=== PATIENT | female | born 1995 | race Caucasian/White ===

== ENCOUNTER 2019-06-03 04:50 | Outpatient (CLI) | payer MEDICAID ==
[2019-06-03] VITALS (7 sets, daily range): BP systolic 100–125; BP diastolic 53–62; PULSE 66–77; TEMP 97.4–98.6
[~2019-06-03] VITALS: Ht 162.6 cm; Wt 110.9 kg
[2019-06-03] MEDS ORDERED: PRENATAL 191 TAB PO (05:19)
[2019-06-03] MEDS ORDERED: NATURAL IRON65 MG (05:19)
--- NOTE | 2019-06-03 06:30 | NUR ---
Assumed care of patient. Rests in bed, alert. 0640 Vag check done, no changed. States still having cramping and contractions. See physicians notes please.
--- NOTE | 2019-06-03 07:00 | NUR ---
States still having contractions. Let her know that she could go home per Dr. Chavez or stay another hour. States wants to wait another hour. 0715 Vistaril 50 mg, tylenol 1000 mg given as ordered by Dr. Cedeno.
--- NOTE | 2019-06-03 07:30 | NUR ---
Rests in bed, alert. Denies any needs at this time.
--- NOTE | 2019-06-03 09:30 | NUR ---
Discharge instructions given, verbalizes with understanding. Dismissed to home with family, ambulatory, stable, alert.
== END 2019-06-03 09:30 | disposition home or self-care (01) ==
LOC: LDRO 04:50
DX: O62.9 Abnormality of forces of labor, unspecified (principal); Z3A.37 37 weeks gestation of pregnancy

== ENCOUNTER 2019-06-05 09:19 | Observation (INO) | payer MEDICAID ==
[~2019-06-05] VITALS: Ht 162.6 cm; Wt 110.5 kg
[~2019-06-05 09:19] MED LIST: NATURAL IRON65 MG; PRENATAL 191 TAB PO
--- NOTE | 2019-06-05 11:40 | NUR ---
Patient to room 213 from ER via cart. Patient fell down the stairs at her home at 0745 this morning. The patient was seen in the ER for a broken shoulder and foot and admitted to our unit for further evaluation from ortho. Patient is alert and oriented and denies pain at this time. INT to left hand. Right arm in a sling. Plan of care reviewed. Patient and spouse oriented to room and call light.
[2019-06-05 11:41] VITALS: BP 128/60; PULSE 76; TEMP 98.3
--- NOTE | 2019-06-05 12:00 | NUR ---
DORIS Avila called in and updated this nurse on new orders for a PT consult and SS consult.
[2019-06-05] MEDS ORDERED: NORCO 325 MG-51 TAB PO (12:18)
--- NOTE | 2019-06-05 12:30 | NUR ---
Attempted to contact physical therapy for consult but they were already gone for the day.
--- NOTE | 2019-06-05 13:30 | NUR ---
er tech to patient room to fit patient for a cam walker. Patient's right foot in cam walker.
--- NOTE | 2019-06-05 13:45 | NUR ---
Patient up to the commode with minimal assistance.
[2019-06-05 16:31] VITALS: BP 113/68; PULSE 92; TEMP 98.3
--- NOTE | 2019-06-05 16:54 | NUR ---
Plan: To return home with Luis [phone] as care support. Patient also wanted listed as EMR. Patient does not have a current DPOA and has declined one at this time. Patient resides in [facility]. Assess: SW received a call about patient in OB. SW met with patient and was at her bedside. Patient gave permission for to be present during interview. patient fell on stairs and broke her shoulder and foot. patient indicated that her PCP is Dr. Gallardo, and OB provider is Dr. Cedeno. Patient has an uping appointment with Dr. Cedeno on May. Patient receives her medications from [facility] on [address] with no complications. Nurse recommended a front knee wheel chair for SM. Action: SW coordinated with nurse to have forms signed and contacted [facility] via [facility]. Patient will be provided with a walker.
--- NOTE | 2019-06-05 17:00 | NUR ---
Knee walked delivered and patient instructed on use.
--- NOTE | 2019-06-05 17:55 | NUR ---
Discharge instructions reviewed with patient and spouse.
== END 2019-06-05 18:20 | disposition home or self-care (01) ==
LOC: COL.ER 09:19 → OB 11:24
PROVIDERS: ADMIT Student in an Organized Health Care Education/Training Program
DX: O9A.213 Injury, poisoning and certain other consequences of external causes complicating pregnancy, third trimester (principal); S42.251A Displaced fracture of greater tuberosity of right humerus, initial encounter for closed fracture; O99.013 Anemia complicating pregnancy, third trimester; Z3A.37 37 weeks gestation of pregnancy; Z88.1 Allergy status to other antibiotic agents; Z87.891 Personal history of nicotine dependence; W01.0XXA Fall on same level from slipping, tripping and stumbling without subsequent striking against object, initial encounter
CPT/HCPCS: G0378; J2405; J3010

== ENCOUNTER 2019-06-10 06:12 | Inpatient (IN) | payer MEDICAID ==
[~2019-06-10] VITALS: Ht 165.2 cm; Wt 110.9 kg
[2019-06-10] VITALS (18 sets, daily range): BP systolic 88–119; BP diastolic 43–69; PULSE 65–83; TEMP 97.2–99.1
[~2019-06-10 06:12] MED LIST changes: +NORCO 325 MG-51 TAB PO
--- NOTE | 2019-06-10 10:10 | NUR ---
1010-G3L0 38.[address] Foy's ambulatory to Rm 210 in walking boot to RLE from fall injury last week. Reports good movement and denies vaginal bleeding or leaking of fluid. Placed on EFM, VSS, FHR reactive. Assessment complete. Consents reviewed and signed. 1040-IV to Left hand by MalcolmRN blood collected and sent to lab per orders. 1045-Off EFM.
[2019-06-10 11:04] LABS: BASO % 0.3 % (0.0-2.0); EOS # 0.1 (0.0-0.7); EOS % 0.6 % (0-4.0); GRAN # 6.8 (1.4-6.5); GRAN % 70.4 % (42.2-75.2); LYMPH # 2.2 (1.2-3.4); LYMPH % 23.2 % (20.0-51.0); MEAN CELL VOLUME 88 fl (80.0-100.0); MEAN CORPUSCULAR HEMOGLOBIN 29 pg (27.0-31.0); MEAN CORPUSCULAR HGB CONC 33 g/dl (33.0-37.0); MEAN PLATELET VOLUME 9.6 fl (7.4-10.4); MONO # 0.5 (0.1-0.6); PLATELET COUNT 292 K/mm3 (130-400); RED BLOOD COUNT 3.74 M/mm3 (4.10-5.30)
[2019-06-10 11:05] LABS: HEMATOCRIT 32.9 % (37.0-47.0)
[2019-06-10] MEDS ORDERED: TYLENOL 500MG500 MG PO (11:52)
[2019-06-10 12:06] LABS: TRICYCLIC ANTIDEPRESS URINE NEGATIVE
[2019-06-10] MEDS ORDERED: PERCOCET 325 MG1 TA2 PO (12:52)
[2019-06-10] MEDS ORDERED: MOTRIN 800800 MG/TAB PO (12:52)
--- NOTE | 2019-06-10 13:30 | NUR ---
1330-Recieved report from DAY Edwards. Patient to PACU, A&Ox4, denies pain. LR infusing into Right hand IV, Danielle to DD, clear yellow urine. Fundal massage firm, lochia WNL. Abdominal dressing C/D/I. Reviewed plan of care with patient. VSS, will continue to monitor per protocol.
--- NOTE | 2019-06-10 20:15 | NUR ---
ASSIST UP TO BR WITH BOOT AND POSITIONING DUE TO RT ARM SLING. MANAGES WELL. BINDER APPLIED.BP 115/43- ASYMPTOMARIC. BRADY CARE - HS CARES STANDING AT SINK. POSITIONES BABY FOR NURSING WITH LITTLE ASSIST. SPOUSE ATTENTIVE
[2019-06-11 00:01] VITALS: BP 121/51; PULSE 64; TEMP 98.1
[2019-06-11 03:54] VITALS: BP 122/45; PULSE 66; TEMP 98.1
[2019-06-11 07:30] VITALS: BP 135/51; PULSE 70; TEMP 97.7
--- NOTE | 2019-06-11 07:30 | NUR ---
Rests in bed, alert. Percocet 5/325 mg two given per request and as ordered. States ready to go to the bathroom. Boot to right leg on. Tolerates well.
--- NOTE | 2019-06-11 09:30 | NUR ---
Ambulates to the bathroom with right boot on. Tolerates well.
--- NOTE | 2019-06-11 13:50 | NUR ---
JUAN responded to social service consult and met with the patient, her and the father of the baby (Luis Lala, ph#[phone]). The patient lives in [place] with her and her 's parents. She reports that her and her both quit there jobs about a month ago, but saved money for baby. She states that they have a carseat and all supplies for the baby. She has not yet applied for WIC. JUAN provided the patient with [facility]'s Resource Guide with contact information for WIC. The patient has a past history of cocaine use and had a positive drug screen back on 07/30/16. The patient states that she used back then after having a miscarriage. She had negative UAs during this . The patient also has a fractured foot and shoulder. The patient states that her dogs tripped her up and that she fell. She is in a sling and boot. She states that she was provided with a walker and uses it, if needed. The patient and her did not have any other questions or concerns for JUAN. JUAN updated the patient's RN. Cord blood pending.
[2019-06-11 16:00] VITALS: BP 115/53; PULSE 70; TEMP 97.6
--- NOTE | 2019-06-11 16:00 | NUR ---
Rests in bed, alert. Percocet 5\325 mg two given for pain as ordered.
[2019-06-11 19:00] VITALS: BP 121/53; PULSE 79; TEMP 97.9
[2019-06-12 08:30] VITALS: BP 125/62; PULSE 78; TEMP 98.4
[2019-06-12 16:37] VITALS: BP 128/76; PULSE 74; TEMP 98.1
[2019-06-12 21:00] VITALS: BP 117/46; PULSE 72; TEMP 97.2
[2019-06-13 08:00] VITALS: BP 129/51; PULSE 76; TEMP 98.2
--- NOTE | 2019-06-13 12:30 | NUR ---
PATIENT DISCHARGE INSTRUCTIONS REVIEWED WITH PATIENT AND . VERBALIZE UNDERSTANDING.
--- NOTE | 2019-06-14 13:46 | NUR ---
Infant's cord blood was negative for illegal drugs in system.
== END 2019-06-13 12:40 | disposition home or self-care (01) | DRG 787 ==
LOC: OB 06:12
PROVIDERS: ADMIT Obstetrics & Gynecology
PROC: 10D00Z1 Extraction of Products of Conception, Low, Open Approach (ICD-10-PCS; principal; 2019-06-10)
DX: O99.02 Anemia complicating childbirth (principal); O99.324 Drug use complicating childbirth; E72.12 Methylenetetrahydrofolate reductase deficiency; D64.9 Anemia, unspecified; O99.214 Obesity complicating childbirth; E66.9 Obesity, unspecified; F14.10 Cocaine abuse, uncomplicated; O99.334 Smoking (tobacco) complicating childbirth; F17.210 Nicotine dependence, cigarettes, uncomplicated; O75.89 Other specified complications of labor and delivery; O69.81X0 Labor and delivery complicated by cord around neck, without compression, not applicable or unspecified; N76.0 Acute vaginitis; O24.420 Gestational diabetes mellitus in childbirth, diet controlled; Z3A.38 38 weeks gestation of pregnancy; Z37.0 Single live birth
CPT/HCPCS: J0690; J1885; J2370; J2405; J2590; J3010; J7120

== ENCOUNTER 2020-01-14 13:00 | Outpatient (RCR) | payer MEDICAID ==
[~2020-01-14 13:00] MED LIST changes: +MOTRIN 800800 MG/TAB PO; +PERCOCET 325 MG1 TA2 PO; +TYLENOL 500MG500 MG PO
== END 2020-01-16 | disposition home or self-care (01) ==
LOC: WSC
DX: M25.511 Pain in right shoulder (principal); Z87.81 Personal history of (healed) traumatic fracture; Z98.890 Other specified postprocedural states

== ENCOUNTER 2020-02-11 15:00 | Outpatient (RCR) | payer MEDICAID | END 2020-02-22 09:42 | disposition home or self-care (01) | LOC: WSC 15:00 | DX: M25.511 Pain in right shoulder (principal); Z87.81 Personal history of (healed) traumatic fracture ==

== ENCOUNTER 2020-03-08 17:30 | Emergency (ER) | payer MEDICAID ==
[~2020-03-08] VITALS: Ht 165.1 cm; Wt 110.0 kg
[2020-03-08 17:35] VITALS: TEMP 98.2
[2020-03-08 18:09] LABS: COLLECTION METHOD CLEAN CATCH
[2020-03-08 18:15] LABS: MUCOUS Present /lpf; PH 6 (5-8); SQUAMOUS EPITHELIAL 0-2 /hpf; URINE APPEARANCE Clear; URINE BACTERIA Rare /hpf; URINE BILIRUBIN Negative (NEGATIVE); URINE BLOOD 3+ (NEGATIVE); URINE COLOR Yellow; URINE GLUCOSE Negative (NEGATIVE); URINE KETONE Negative (NEGATIVE); URINE LEUKOCYTE ESTERASE Negative (NEGATIVE); URINE NITRATE Negative (NEGATIVE); URINE PROTEIN(semi-quant) Negative (NEGATIVE); URINE UROBILINOGEN Negative (NEGATIVE)
[2020-03-08 18:22] LABS: BASO % 0.5 % (0.0-2.0); EOS # 0.1 (0.0-0.7); EOS % 1.1 % (0-4.0); GRAN # 4.8 (1.4-6.5); GRAN % 56.7 % (42.2-75.2); HEMATOCRIT 40.4 % (37.0-47.0); HEMOGLOBIN 13.7 g/dl (12.5-16.0); LYMPH # 2.9 (1.2-3.4); LYMPH % 34.2 % (20.0-51.0); MEAN CELL VOLUME 88 fl (80.0-100.0); MEAN CORPUSCULAR HEMOGLOBIN 30 pg (27.0-31.0); MEAN CORPUSCULAR HGB CONC 34 g/dl (33.0-37.0); MEAN PLATELET VOLUME 9.2 fl (7.4-10.4); MONO # 0.6 (0.1-0.6); MONO % 7.1 % (1.7-9.3); PLATELET COUNT 329 K/mm3 (130-400); RED BLOOD COUNT 4.61 M/mm3 (4.10-5.30); REDCELL DISTRIBUTION WIDTH-CV 12.8 % (11.5-14.5)
[2020-03-08 18:23] LABS: ALANINE AMINOTRANSFERASE 150 U/L (4-34); ALBUMIN 4.7 gm/dL (3.5-5.0); ALKALINE PHOSPHATASE 68 U/L (50-136); ANION GAP 10 mmol/L (7-16); AST,SGOT 87 U/L (15-37); BILIRUBIN,TOTAL 0.4 mg/dL (0.0-1.0); BLOOD UREA NITROGEN 17 mg/dL (7-17); CALCIUM 9.2 mg/dL (8.4-10.2); CARBON DIOXIDE 26 mmol/L (22-30); CHLORIDE 104 mmol/L (98-107); CREATININE, serum 0.65 (0.52-1.25); GLUCOSE 121 mg/dL (74-106); POTASSIUM 4.4 mmol/L (3.4-5.0); SODIUM 139 mmol/L (137-145); TOTAL PROTEIN 8.5 gm/dL (6.4-8.2)
[2020-03-08 18:48] LABS: HCG,QUANTITATIVE < 2 mIU/mL (0-5)
[2020-03-08 20:47] VITALS: BP 128/58; PULSE 62
[2020-03-08] MEDS ORDERED: PHENERGAN 25 TA25 MG PO (20:53)
== END 2020-03-08 21:08 | disposition home or self-care (01) ==
LOC: COL.ER 17:30
PROVIDERS: Emergency Medicine
DX: O26.891 Other specified pregnancy related conditions, first trimester (principal); R10.2 Pelvic and perineal pain; R11.2 Nausea with vomiting, unspecified; N93.9 Abnormal uterine and vaginal bleeding, unspecified; Z3A.09 9 weeks gestation of pregnancy; Z88.1 Allergy status to other antibiotic agents
CPT/HCPCS: J1200; J1885; J2405; J2550; J7120

== ENCOUNTER 2020-11-01 11:00 | Emergency (ER) | payer MEDICAID ==
[~2020-11-01] VITALS: Ht 165.1 cm; Wt 122.3 kg
[~2020-11-01 11:00] MED LIST changes: +PHENERGAN 25 TA25 MG PO
[2020-11-01 11:07] VITALS: TEMP 98.1
[2020-11-01] MEDS ORDERED: NORCO 325 MG-51 TAB PO (11:53)
[2020-11-01 12:08] VITALS: BP 110/76; PULSE 75
== END 2020-11-01 12:08 | disposition home or self-care (01) ==
LOC: COL.ER 11:00
DX: M25.511 Pain in right shoulder (principal); Z87.891 Personal history of nicotine dependence; X50.0XXA Overexertion from strenuous movement or load, initial encounter
CPT/HCPCS: J1885

== ENCOUNTER 2021-05-25 05:35 | Emergency (ER) | payer MEDICAID ==
[~2021-05-25] VITALS: Ht 162.6 cm; Wt 104.1 kg
[2021-05-25 05:43] VITALS: TEMP 98.1
[2021-05-25] MEDS ORDERED: ZITHROMAX Z PA250 MG PO (07:45)
[2021-05-25 07:50] VITALS: BP 124/87; PULSE 80
== END 2021-05-25 07:55 | disposition home or self-care (01) ==
LOC: COL.ER 05:35
DX: J06.9 Acute upper respiratory infection, unspecified (principal); Z20.822 Contact with and (suspected) exposure to COVID-19; Z88.1 Allergy status to other antibiotic agents

== ENCOUNTER 2021-07-02 20:50 | Emergency (ER) | payer OTHER, MEDICAID ==
[~2021-07-02 20:50] MED LIST changes: +ZITHROMAX Z PA250 MG PO
[2021-07-02 22:59] LABS: BASO % 0.3 % (0.0-2.0); EOS # 0.1 K/mm3 (0.0-0.7); EOS % 0.5 % (0.0-4.0); GRAN # 7.4 K/mm3 (1.4-6.5); GRAN % 71.4 % (42.2-75.2); HEMOGLOBIN 12.1 g/dl (12.5-16.0); LYMPH # 2.3 K/mm3 (1.2-3.4); LYMPH % 22.4 % (20.0-51.0); MEAN CELL VOLUME 87 fl (80.0-100.0); MEAN CORPUSCULAR HEMOGLOBIN 30 pg (27-31); MEAN CORPUSCULAR HGB CONC 34 g/dl (33.0-37.0); MONO # 0.6 K/mm3 (0.1-0.6); MONO % 5.3 % (1.7-9.3); PLATELET COUNT 325 K/mm3 (130-400); RED BLOOD COUNT 4.04 M/mm3 (4.10-5.30); REDCELL DISTRIBUTION WIDTH-CV 12.7 % (11.5-14.5)
[2021-07-02 23:03] LABS: HEMATOCRIT 35.2 % (37.0-47.0)
[2021-07-02 23:05] VITALS: BP 135/66; PULSE 69; TEMP 97.9
== END 2021-07-02 23:05 | disposition home or self-care (01) ==
LOC: COL.ER 20:50
PROVIDERS: Emergency Medicine
DX: O9A.211 Injury, poisoning and certain other consequences of external causes complicating pregnancy, first trimester (principal); S39.92XA Unspecified injury of lower back, initial encounter; Z3A.00 Weeks of gestation of pregnancy not specified; V89.2XXA Person injured in unspecified motor-vehicle accident, traffic, initial encounter

== ENCOUNTER → 2021-12-14 | Outpatient (CLI) | payer OTHER, MEDICAID ==
[~2021-12-14] VITALS: Ht 162.6 cm; Wt 109.5 kg
[~2021-12-14] MED LIST changes: +OMEGA-3 1000 MG1 CAP PO
--- NOTE | 2021-12-14 10:00 | NUR ---
Pt arrived on unit via wheelchair escorted by and with concerns for nausea, diarrhea, abdominal pain and decreased movement since 0130 this morning. Pt denies any leaking of fluid or vaginal bleeding. EFM and toco monitor started. Vital signs WNL. SVE by this RN closed/thick/high. Dr. Burnette notified. See physician notification for details.
[2021-12-14 10:30] VITALS: BP 123/74; PULSE 76; TEMP 97.7
--- NOTE | 2021-12-14 11:35 | NUR ---
Pt reports feeling better and ready to go home.
== END ==
LOC: LDRO 09:49
DX: O36.8130 Decreased fetal movements, third trimester, not applicable or unspecified (principal); O21.9 Vomiting of pregnancy, unspecified; Z3A.33 33 weeks gestation of pregnancy
CPT/HCPCS: J7120

== ENCOUNTER → 2021-12-22 | Outpatient (CLI) | payer OTHER, MEDICAID ==
--- NOTE | 2021-12-22 21:00 | NUR ---
pt presents to L&D with c/o of cramps and dehydration.pt states she has been outside all day having her baby shower, she has been hot and feeling dehydrated. she has drank fluids but not much water. on her trip to here she drank to bottles of water and a bottle of pedylyte. since she got here she is feeling better and the cramps have eased up. vs stable. temp 98.6 oral. no uc's palpated or on the monitor. pt given water to drink. pt states she does not want an IV or meds she is feeling better and will drink more water at home. DR KERN NOTIFIED OF PT'S COMPLAINTS. ORDERS NOTED. PT MAY GO HOME WITH INSTRUCTIONS TO DRINK MORE WATER, REST, FOLLOW UP WITH HER DOCTOR.
[2021-12-22 21:40] VITALS: BP 124/73; PULSE 96; TEMP 98.6
--- NOTE | 2021-12-22 21:50 | NUR ---
PT GIVEN WRITTEN AND VERBAL DISCHARGE INSTRUCTIONS TO HYDRATE WITH WATER AND REST. STAY OUT OF THE HEAT. PT VERBALIZED UNDERSTANDING AND LEFT THE UNIT AMB OUT WITH HER .
== END ==
LOC: LDRO 20:53
DX: O26.893 Other specified pregnancy related conditions, third trimester (principal); E86.0 Dehydration; R25.2 Cramp and spasm; Z3A.36 36 weeks gestation of pregnancy

== ENCOUNTER 2022-01-20 06:46 | Inpatient (IN) | payer OTHER, MEDICAID ==
[2022-01-20] VITALS (17 sets, daily range): BP systolic 95–144; BP diastolic 48–68; PULSE 49–83; TEMP 97.5–99.1
[~2022-01-20] VITALS: Ht 162.6 cm; Wt 112.7 kg
[2022-01-20 07:55] LABS: BASO % 0.2 % (0.0-2.0); EOS # 0.1 K/mm3 (0.0-0.7); EOS % 1.1 % (0.0-4.0); GRAN # 5.6 K/mm3 (1.4-6.5); HEMOGLOBIN 10.6 g/dl (12.5-16.0); LYMPH # 2.1 K/mm3 (1.2-3.4); LYMPH % 25.7 % (20.0-51.0); MEAN CELL VOLUME 86 fl (80.0-100.0); MEAN CORPUSCULAR HEMOGLOBIN 29 pg (27-31); MEAN CORPUSCULAR HGB CONC 34 g/dl (33.0-37.0); MEAN PLATELET VOLUME 9.7 fl (7.4-10.4); MONO # 0.5 K/mm3 (0.1-0.6); MONO % 5.5 % (1.7-9.3); PLATELET COUNT 251 K/mm3 (130-400); RED BLOOD COUNT 3.64 M/mm3 (4.10-5.30); REDCELL DISTRIBUTION WIDTH-CV 14.2 % (11.5-14.5)
[2022-01-20 08:01] LABS: HEMATOCRIT 31.4 % (37.0-47.0)
[2022-01-20 08:33] LABS: TRICYCLIC ANTIDEPRESS URINE NEGATIVE
[2022-01-20] MEDS ORDERED: MOTRIN 800800 MG/TAB PO (10:17)
[2022-01-20] MEDS ORDERED: PERCOCET 325 MG1 TA2 PO (10:17)
[2022-01-21 00:05] VITALS: BP 120/72; PULSE 80; TEMP 98.3
[2022-01-21 07:30] VITALS: BP 123/69; PULSE 80; TEMP 98.2
[2022-01-21 17:30] VITALS: BP 141/67; PULSE 82; TEMP 97.8
[2022-01-21 20:15] VITALS: BP 125/59; PULSE 78; TEMP 97.8
[2022-01-22 07:57] VITALS: BP 130/68; PULSE 70; TEMP 97.8
--- NOTE | 2022-01-22 13:21 | NUR ---
1300-DISCHARGE INSTRUCTIONS EXPLAINED TO PT. PT VERBALIZED UNDERSTANDING. PT LEFT L&D UNIT IN STABLE CONDITION WITH NO COMPLAINTS. PT WHEELED BY RN IN WHEELCHAIR TO VEHICLE.
--- NOTE | 2022-01-22 13:32 | NUR ---
housekeeping laundry worker met with patient and her spouse to assess needs for discharge. Worker provided layette set. Patient and spouse state they will discharge to home today. Spouse states he is a stay at home Dad. Patient has a 2 1/2 year old child at home, that is currently staying with an Aunt. Patient states they have car seat, bed, and needed supplies for their . Patient states they are enrolled in WIC and foodstamps and deny further unmet needs. Patient states shes has maternity leave and then will return to her job.
== END 2022-01-22 13:00 | disposition home or self-care (01) | DRG 787 ==
LOC: OB 06:46
PROVIDERS: ADMIT Obstetrics & Gynecology
PROC: 10D00Z1 Extraction of Products of Conception, Low, Open Approach (ICD-10-PCS; principal; 2022-01-20)
DX: O34.211 Maternal care for low transverse scar from previous cesarean delivery (principal); O99.323 Drug use complicating pregnancy, third trimester; O99.02 Anemia complicating childbirth; D64.9 Anemia, unspecified; O24.429 Gestational diabetes mellitus in childbirth, unspecified control; O99.213 Obesity complicating pregnancy, third trimester; F15.90 Other stimulant use, unspecified, uncomplicated; O99.283 Endocrine, nutritional and metabolic diseases complicating pregnancy, third trimester; E28.2 Polycystic ovarian syndrome; O99.333 Smoking (tobacco) complicating pregnancy, third trimester; Z3A.39 39 weeks gestation of pregnancy; Z37.0 Single live birth
CPT/HCPCS: J0690; J1100; J1885; J2405; J3010; J7120

== ENCOUNTER 2023-11-06 09:51 | Inpatient (IN) | payer MEDICAID ==
[~2023-11-06] VITALS: Ht 165.1 cm; Wt 131.4 kg
[2023-11-06] VITALS (19 sets, daily range): BP systolic 107–141; BP diastolic 45–83; PULSE 59–123; TEMP 98.1–98.2
[2023-11-06] MEDS ORDERED: PRIL40 PO (11:09)
--- NOTE | 2023-11-06 11:30 | NUR ---
ASSUMED CARE OF PATIENT AT THIS TIME FROM BHAVANI HOWARD.
[2023-11-06] MEDS ORDERED: Naloxone 0.4 MG/ML VIAL IV PRN (12:15)
[2023-11-06] MEDS ORDERED: Acetaminophen 500 MG TAB PO PRN (12:15)
[2023-11-06] MEDS ORDERED: oxyCODONE 5 MG TAB PO PRN (12:15)
[2023-11-06] MEDS ORDERED: Loratadine 10 MG TAB PO PRN (12:15)
[2023-11-06] MEDS ORDERED: Measles/Mumps/Rubella Virus Vaccine Live w Diluent 0.5 ML VIAL SQ SCH (12:15)
[2023-11-06] MEDS ORDERED: LR 1,000 ML IV PRN (12:15)
[2023-11-06] MEDS ORDERED: Magnes Hydrox (MOM) 80 MG/ML 30 ML CUP PO PRN (12:15)
[2023-11-06] MEDS ORDERED: Ondansetron 4 MG/2 ML VIAL IV PRN (12:15)
[2023-11-06] MEDS ORDERED: LR 1,000 ML IV SCH (12:30)
--- NOTE | 2023-11-06 14:00 | NUR ---
PT TRANSFERRED FROM PACU TO OB BE RM 211.
[2023-11-06 14:13] LABS: BASO % 0.3 % (0.0-2.0); EOS # 0.1 K/mm3 (0.0-0.7); EOS % 0.6 % (0.0-4.0); GRAN # 7.4 K/mm3 (1.4-6.5); GRAN % 72.5 % (42.2-75.2); HEMATOCRIT 37.2 % (37.0-47.0); HEMOGLOBIN 11.8 g/dl (12.5-16.0); LYMPH # 2.2 K/mm3 (1.2-3.4); LYMPH % 21.7 % (20.0-51.0); MEAN CELL VOLUME 87 fl (80.0-100.0); MEAN CORPUSCULAR HEMOGLOBIN 28 pg (27-31); MEAN CORPUSCULAR HGB CONC 32 g/dl (33.0-37.0); MEAN PLATELET VOLUME 9.5 fl (7.4-10.4); MONO # 0.5 K/mm3 (0.1-0.6); MONO % 4.4 % (1.7-9.3); PLATELET COUNT 329 K/mm3 (130-400); RED BLOOD COUNT 4.26 M/mm3 (4.10-5.30)
[2023-11-06 14:23] LABS: TRICYCLIC ANTIDEPRESS URINE NEGATIVE (NEGATIVE)
[2023-11-06] MEDS ORDERED: Sennosides/Docusate 8.6-50 MG TAB PO SCH (17:00)
[2023-11-06] MEDS ORDERED: Ibuprofen 800 MG TAB PO SCH (18:10)
--- NOTE | 2023-11-06 20:45 | NUR ---
PT ASSISTED UP OUT OF BED BY THIS RN AND TO THE BATHROOM. CHARLES CATHETER REMOVED, BRADY CARE PROVIDED TO PATIENT. PT UNABLE TO VOID AT THIS TIME. PT EDUCATED ON FLUID INTAKE, UTILZING THE RESTROOM, PAIN MANAGAMENT, AND S/S OF INFECTION. PT DRESSED IN CLEAN GOWN. PT THEN WALKED HALLWAYS WITH INFANT IN CRIB FOR APPROX 10 MINS, THEN RETURNED TO ROOM.
[2023-11-06] MEDS ORDERED: traZODone 50 MG TAB PO PRN (21:00)
[2023-11-07 04:30] VITALS: BP 126/49; PULSE 86; TEMP 97.9
[2023-11-07 08:30] VITALS: BP 132/64; PULSE 83; TEMP 98.2
--- NOTE | 2023-11-07 09:28 | NUR ---
Initial visit attempt: Family resting, Director Of Real Estate left card offering congratulations and God's blessings for the of their daughter and information regarding the availability of Spiritual Care at [facility].
[2023-11-07 12:35] VITALS: BP 129/80; PULSE 95
== END 2023-11-07 15:45 | disposition home or self-care (01) | DRG 787 ==
LOC: OB 09:51
PROVIDERS: ADMIT Obstetrics & Gynecology
PROC: 10D00Z1 Extraction of Products of Conception, Low, Open Approach (ICD-10-PCS; principal; 2023-11-06)
DX: O34.211 Maternal care for low transverse scar from previous cesarean delivery (principal); E72.12 Methylenetetrahydrofolate reductase deficiency; O24.424 Gestational diabetes mellitus in childbirth, insulin controlled; Z37.0 Single live birth; Z3A.37 37 weeks gestation of pregnancy; O99.214 Obesity complicating childbirth; O99.284 Endocrine, nutritional and metabolic diseases complicating childbirth; Z23 Encounter for immunization
CPT/HCPCS: J7120